=== PATIENT | male | born 1970 | race Caucasian/White ===

== ENCOUNTER 2019-01-26 07:12 | Day surgery (SDC) | payer BC ==
[~2019-01-26] VITALS: Ht 162.6 cm; Wt 88.2 kg
[2019-01-26] MEDS ORDERED: NS 1,000 ML IV ONE (07:30)
[2019-01-26] MEDS ORDERED: ONDANSETRON 4MG/2ML VIAL (J2405) IV ONE (07:30)
[2019-01-26] MEDS ORDERED: KETOROLAC 30 MG/ML VIAL (J1885) IV ONE (07:30)
[2019-01-26 07:58] LABS: BASO # 0.1 10^3/uL (0.0-0.2); BASO % 1.1 % (0.0-1.0); EOS # 0.8 10^3/uL (0.0-0.5); EOS % 7.2 % (0.0-3.0); HEMATOCRIT 48.7 % (42.0-52.0); HEMOGLOBIN 16.7 g/dl (13.5-17.5); LYMPH # 1.9 10^3/uL (1.5-5.0); LYMPH % 16.9 % (24.0-44.0); MEAN CORPUSCULAR HGB CONC 34.3 g/dl (32.0-36.5); MEAN CORPUSCULAR VOLUME 93.3 fl (80.0-96.0); MONO # 0.8 10^3/uL (0.0-0.8); MONO % 7.1 % (0.0-5.0); NEUTROPHILS # 7.7 10^3/uL (1.5-8.5); NEUTROPHILS % 67.3 % (36.0-66.0); PLATELET COUNT, AUTOMATED 223 10^3/uL (150-450); RED BLOOD COUNT 5.22 10^6/uL (4.30-6.10); WHITE BLOOD COUNT 11.4 10^3/uL (4.0-10.0)
[2019-01-26 08:21] LABS: BLOOD UREA NITROGEN 16 MG/DL (7-18); CALCIUM LEVEL 8.9 MG/DL (8.5-10.1); CARBON DIOXIDE LEVEL 24 MEQ/L (21-32); CHLORIDE LEVEL 110 MEQ/L (98-107); CREATININE FOR GFR 1.17 MG/DL (0.70-1.30); GLOMERULAR FILTRATION RATE > 60.0 (>60); GLUCOSE, FASTING 117 MG/DL (70-100); POTASSIUM SERUM 4.4 MEQ/L (3.5-5.1); SODIUM LEVEL 140 MEQ/L (136-145)
--- NOTE | 2019-01-26 08:39 | REP ---
Urinary tract sonography: History: Left flank pain. Evaluate for hydronephrosis or calculus. No comparison imaging. Findings: Scanning at the level of the urinary bladder shows no abnormality. Renal cortical echogenicity pattern is normal. Renal contours are smooth. No renal mass lesion is seen. The right kidney measures 11.2 x 4.9 x 5.3 cm. There is no evidence of right-sided hydronephrosis or calculus. Left renal dimensions are 11.5 x 6.3 x 6.3 cm. There is moderate hydronephrosis left kidney. Hydroureter is seen and the dilated mid ureter can be traced sonographically to the point where there is a 1 cm shadowing calculus within the left mid ureter. No other finding. Impression: Moderate left-sided hydronephrosis due to an obstructing 10 mm calculus at mid ureteral level. No abnormality on the right. Electronically Signed by King Johnson MD 01/26/2019 09:15 A
[2019-01-26] MEDS ORDERED: MORPHINE 4 MG/ML 1ML VIAL/SYRINGE (J2270) IV ONE ×2 (09:15→10:45)
[2019-01-26] MEDS ORDERED: TAMSULOSIN 0.4 MG CAP PO ONE (09:15)
[2019-01-26] MEDS ORDERED: PROMETHAZINE INJ 25 MG/ML VIAL (J2550) IV ONE (09:15)
--- NOTE | 2019-01-26 10:18 | REP ---
CT abdomen and pelvis without oral or IV contrast: History: 10 mm ureteral calculus noted on ultrasound producing hydronephrosis of the left kidney. CT findings: Digital preliminary public health administrator radiograph is unremarkable. The lung bases are essentially clear. The liver and the spleen are normal in size homogeneous in texture. No adrenal lesion is seen. Pancreas and gallbladder are unremarkable. Small and large intestinal bowel loops are normal in appearance. There are water to dystrophic calcifications in the prostate gland. Urinary bladder and seminal vesicles are normal in appearance. A normal appendix is noted in the right lower quadrant. There are numerous intrarenal calculi in the kidneys bilaterally. The largest intrarenal calculus in the right kidney is in its lower pole measuring 6 mm. The largest intrarenal calculus in the left kidney is also a lower pole calculus measuring 4 mm. There is moderate left-sided hydronephrosis confirmed by CT. This is due to a mid ureteral calculus who has greatest craniocaudal dimension is [address] scanning. There is periureteral edema along the mid ureter. Ureter is not dilated distal to this. No bladder calculus is seen. No bony destructive lesion is observed. The scan is otherwise unremarkable. Impression: 1. There is an obstructive 15 mm left mid ureteral calculus producing moderate left-sided hydronephrosis. Periureteral edema is seen. 2. There are numerous intrarenal calculi bilaterally. No right-sided hydronephrosis. Electronically Signed by King Johnson MD 01/26/2019 01:45 P
[2019-01-26] MEDS ORDERED: cefTRIAXone SOD 1 GM in D5W MINI-BAG PLUS 50 ML IV ONE (10:30)
[2019-01-26 15:15] VITALS: BP 132/87
[2019-01-26] MEDS ORDERED: ISOVUE-300 61% 50ML VIAL (Q9967) As Ordered ONE (17:51)
[2019-01-26] MEDS ORDERED: HEPARIN SOD (PORCINE) 5000 UNITS/ML VIAL As Ordered ONE (17:52)
[2019-01-26] MEDS ORDERED: BUPIVACAINE/EPIN 0.5% 30 ML VIAL As Ordered ONE (17:52)
[2019-01-26] MEDS ORDERED: CONRAY-60 60% 50ML VIAL (Q9961) As Ordered ONE (18:40)
[2019-01-26] MEDS ORDERED: LIDOCAINE 2% 5ML JELLY UROJET As Ordered ONE (18:40)
[2019-01-26] MEDS ORDERED: PROPOFOL 200 MG/20 ML VIAL As Ordered ONE ×2 (18:48→19:27)
[2019-01-26] MEDS ORDERED: LIDOCAINE 2% INJ 100 MG/5 ML SDV (FOR ANES.) As Ordered ONE (18:48)
[2019-01-26] MEDS ORDERED: MIDAZOLAM INJ 2 MG/2 ML VIAL (J2250) As Ordered ONE (18:50)
[2019-01-26] MEDS ORDERED: fentaNYL 100 MCG/2 ML INJECTION (J3010) As Ordered ONE (18:50)
[2019-01-26] MEDS ORDERED: ONDANSETRON 4MG/2ML VIAL (J2405) As Ordered ONE (18:51)
--- NOTE | 2019-01-26 18:51 | SMCUROLCON ---
Urology Consultation General Date of Consultation 01/26/19 Reason For Consultation This patient is seen for Kidney Stone. History of Present Illness This is a 48 y/o M w/ a PMH significant for NADIYA and kidney stones, presenting to the hospital w/ increasing worse left flank pain x 1 week. He also notes nausea but no vomiting. A CT A/P was obtained in the ER and was notable for moderate left hydroureteronephrosis due to an obstructing 15mm mid left ureteral stone. It was also notable for additional nonobstructing stones in each kidney. The patient notes that he has passed several stones previously but has never had surgery for kidney stones. Past Medical History Medical History kidney stones Surgical Hstory parathyroidectomy? Medications Current Medications Current Medications Medications (Trade) Dose Ordered Sig/Brianna Route PRN Reason Start Time Stop Time Status Last Admin Dose Admin Home Med (Med Rec Complete!) ASDIRECTED XX 01/26/19 10:45 01/26/19 10:50 DC Allergies Allergies: Coded Allergies: No Known Allergies (Unverified , 01/26/19) Review of Systems General: Reports: Normal Appetite; Denies: Fatigue, Malaise Constitutional: Denies: Fever, Chills, Sweats, Weakness, Malaise Cardiovascular: Reports Chest Pain (occasional) Gastrointestinal: Reports: Nausea; Denies: Vomiting, Other Symptoms Genitourinary: Denies: Dysuria, Frequency, Incontinence, Hematuria Musculoskeletal: Reports: Back Pain (left flank pain) Psych: Reports: Mood Normal Physical Examination General Exam: Alert, Cooperative, No Acute Distress Chest Exam: Clear to auscultation Heart Exam: Rate Normal, Regular Rhythm Abdomen Exam: Soft Skin Exam: Nl turgor and temperature Neuro Exam: Normal Speech Psych Exam: Mental status NL, Mood NL Vital Signs/I&O Vital Signs Date Time Temp Pulse Resp B/P (MAP) Pulse Ox O2 Delivery O2 Flow Rate FiO2 01/26/19 15:15 97.7 43 18 132/87 (102) 98 Room Air Laboratory Data 24H Labs Laboratory Tests 2 01/26/19 07:32: Immature Granulocyte % (Auto) 0.4, Neutrophils (%) (Auto) 67.3H, Lymphocytes (%) (Auto) 16.9L, Monocytes (%) (Auto) 7.1H, Eosinophils (%) (Auto) 7.2H, Basophils (%) (Auto) 1.1H, Neutrophils # (Auto) 7.7, Lymphocytes # (Auto) 1.9, Monocytes # (Auto) 0.8, Eosinophils # (Auto) 0.8H, Basophils # (Auto) 0.1, Nucleated Red Blood Cells % (auto) 0.0, Urine Color YELLOW, Urine Appearance HAZY, Urine pH 5.0, Urine Specific Philipp 1.023, Urine Protein 2+H, Urine Glucose (UA) NEGATIVE, Urine Ketones TRACEH, Urine Blood 3+H, Urine Nitrite NEGATIVE, Urine Bilirubin NEGATIVE, Urine Urobilinogen 0.2, Urine Leukocyte Esterase NEGATIVE, Urine WBC (Auto) 6H, Urine RBC (Auto) 148H, Urine Hyaline Casts (Auto) 0, Urine Bacteria (Auto) 1+H, Urine Squamous Epithelial Cells 0, Urine Mucus (Auto) SMALL, Urine Sperm (Auto) , Anion Gap 6L, Glomerular Filtration Rate > 60.0, Calcium Level 8.9 01/26/19 07:42: POC Lactate (Misc Panel) 0.74 CBC/BMP Laboratory Tests 01/26/19 07:32 Assessment This is a 48 y/o M w/ an obstructing 15mm mid left ureteral stone. I recommended that we take him to the OR today for cystoscopy, left ureteral stent placement. After a discussion of the risks and benefits of surgery, informed consent was signed. Plan - to OR now - NPO - rocephin 1g given at 11am - patient may be discharged home postop w/ outpt f/u to arrange b/l ureteroscopy w/ laser lithotripsy at a later date MARYELLEN CANSECO MD Jan 26, 2019 18:51
[2019-01-26] MEDS ORDERED: KETOROLAC 60 MG/2 ML VIAL (J1885) As Ordered ONE (19:30)
--- NOTE | 2019-01-26 19:50 | RO ---
DATE OF PROCEDURE: 01/26/2019 PREPROCEDURE DIAGNOSIS: Obstructing left ureteral stone. POSTPROCEDURE DIAGNOSIS: Obstructing left ureteral stone. PROCEDURE: Cystoscopy, left retrograde pyelogram and intraoperative interpretation of images, left ureteral stent placement. SURGEON: Natan Alanis MD EDITORIAL WRITER: None. ANESTHESIA: Monitored anesthesia care (MAC). OPERATIVE INDICATIONS: This is a 48-year-old male who was found to have an obstructing 15 mm mid left ureteral stone, as well as multiple nonobstructing bilateral kidney stones. He was brought to the operating room today for stent placement to help with intractable pain. DESCRIPTION OF PROCEDURE: The patient was brought to the operating room and MAC anesthesia was administered. Prophylactic antibiotics had already been administered. He was then placed in the dorsal lithotomy position and prepped and draped in the usual sterile fashion. A rigid cystoscope was inserted into the urethral meatus and advanced into the bladder. Once inside the bladder, a guidewire was advanced up the left collecting system. I then advanced a 5-Italian open-ended ureteral catheter up the left collecting system and then removed the wire. A retrograde pyelogram was performed and notable for moderate to severe left hydroureteronephrosis. I then advanced the wire back up and then removed the ureteral catheter. Next, I advanced a 7-Italian x 22-32 cm JJ ureteral stent up the left collecting system. The wire was removed, and there were adequate curls of the stent in the left renal pelvis and in the bladder. The bladder was then emptied of all fluids and this marked the conclusion of the procedure. The patient was then taken out of the dorsal lithotomy position, awakened from anesthesia, transported to the recovery room in stable condition. Estimated blood loss: 5 mL. Complications: None. Specimens: None. PLAN: The patient can be discharged home if his pain is controlled. We will schedule him to followup in our clinic in a week or two to get him set up for most likely bilateral ureteroscopy with laser lithotripsy. Also, of note, the patient has been having intermittent chest pain for a few months now. He will likely also need medical and potentially cardiac clearance.
[2019-01-26] MEDS ORDERED: ONDANSETRON 4MG/2ML VIAL (J2405) IV PRN (20:00)
[2019-01-26] MEDS ORDERED: LR 1,000 ML IV SCH (20:00)
[2019-01-26] MEDS ORDERED: PERCOCET 5MG/325MG TAB PO PRN ×2 (20:00)
[2019-01-26] MEDS ORDERED: fentaNYL 100 MCG/2 ML INJECTION (J3010) IV PRN (20:00)
[2019-01-26 20:37] VITALS: BP 130/80
--- NOTE | 2019-01-27 05:44 | REP ---
Clinical: Left ureteral stent placement. Technique: Single intraoperative fluoroscopic image. Findings: The patient is status post left ureteral stent placement in satisfactory position. Mild residual hydronephrosis suggested. Total fluoroscopic time 31 seconds (2.30 mGy) Electronically Signed by Kulwinder Horner MD 01/27/2019 05:36 A
--- NOTE | 2019-01-27 06:48 | ECGEPIP ---
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
== END 2019-01-26 21:51 | disposition home or self-care (01) ==
LOC: M ED 07:12 → M SDC 07:13 → M MSPAV 15:14 → M SDC 21:51
PROVIDERS: ATTEND Urology
DX: N20.2 Calculus of kidney with calculus of ureter (principal); G47.30 Sleep apnea, unspecified; F17.218 Nicotine dependence, cigarettes, with other nicotine-induced disorders; Z79.899 Other long term (current) drug therapy
CPT/HCPCS: 52332; 74176; 74420; 76775; 80048; 81001; 83605; 85025; 93005; 96361; 96365; 96375; 99284; C1769; C2617; J0696; J1885; J2250; J2270; J2405; J3010; Q9961; Q9967

== ENCOUNTER → 2019-02-02 | Outpatient (REF) | payer BC ==
[2019-02-02 13:12] LABS: APPEARANCE, URINE HAZY (CLEAR); BACTERIA, URINE AUTO NEGATIVE (NEGATIVE); BILIRUBIN, URINE AUTO NEGATIVE (NEGATIVE); BLOOD, URINE BLOOD 3+ (NEGATIVE); COLOR, URINE YELLOW (YELLOW); GLUCOSE, URINE (UA) AUTO NEGATIVE (NEGATIVE); KETONE, URINE AUTO NEGATIVE (NEGATIVE); LEUKOCYTE ESTERASE, URINE AUTO TRACE (NEGATIVE); MUCUS, URINE SMALL (NEGATIVE); NITRITE, URINE AUTO NEGATIVE (NEGATIVE); PROTEIN, URINE AUTO 2+ mg/dL (NEGATIVE); RBC, URINE AUTO 172 /HPF (0-3); SPECIFIC GRAVITY URINE AUTO 1.017 (1.002-1.035); SQUAMOUS EPITHELIAL CELL UR AU 0 /HPF (0-6); UROBILINOGEN, URINE AUTO 0.2 mg/dL (0.0-2.0); WBC, URINE AUTO 9 /HPF (0-3)
== END ==
LOC: M SMT 12:59
PROVIDERS: ATTEND Nurse Practitioner Family
DX: N20.0 Calculus of kidney (principal)

== ENCOUNTER → 2019-02-20 | Outpatient (REF) | payer BC ==
[2019-02-20 15:27] LABS: CHOLESTEROL RISK RATIO 7.777 (<5); CK-MB VALUE MASS 1.7 NG/ML (<3.6); MB/CK RELATIVE INDEX 0.97 (< OR =4); TROPONIN I 0.04 NG/ML (< 0.10)
== END ==
LOC: M PLALAB 12:52
PROVIDERS: ATTEND Student in an Organized Health Care Education/Training Program
DX: R07.9 Chest pain, unspecified (principal)

== ENCOUNTER → 2019-02-20 | Outpatient (CLI) | payer BC ==
[2019-02-20 15:17] LABS: HEMATOCRIT 45.5 % (42.0-52.0); HEMOGLOBIN 15.1 g/dl (13.5-17.5); MEAN CORPUSCULAR HEMOGLOBIN 31.9 pg (27.0-33.0); MEAN CORPUSCULAR HGB CONC 33.2 g/dl (32.0-36.5); PLATELET COUNT, AUTOMATED 238 10^3/uL (150-450); RED BLOOD COUNT 4.74 10^6/uL (4.30-6.10); WHITE BLOOD COUNT 10.4 10^3/uL (4.0-10.0)
[2019-02-20 15:27] LABS: APPEARANCE, URINE CLOUDY (CLEAR); BACTERIA, URINE AUTO NEGATIVE (NEGATIVE); BILIRUBIN, URINE AUTO NEGATIVE (NEGATIVE); BLOOD, URINE BLOOD 3+ (NEGATIVE); COLOR, URINE YELLOW (YELLOW); GLUCOSE, URINE (UA) AUTO NEGATIVE (NEGATIVE); KETONE, URINE AUTO NEGATIVE (NEGATIVE); LEUKOCYTE ESTERASE, URINE AUTO NEGATIVE (NEGATIVE); MUCUS, URINE SMALL (NEGATIVE); NITRITE, URINE AUTO NEGATIVE (NEGATIVE); PROTEIN, URINE AUTO 2+ mg/dL (NEGATIVE); RBC, URINE AUTO TNTC /HPF (0-3); SPECIFIC GRAVITY URINE AUTO 1.018 (1.002-1.035); SQUAMOUS EPITHELIAL CELL UR AU 0 /HPF (0-6); UROBILINOGEN, URINE AUTO 0.2 mg/dL (0.0-2.0); WBC, URINE AUTO 53 /HPF (0-3)
[2019-02-20 15:32] LABS: BLOOD UREA NITROGEN 13 MG/DL (7-18); CALCIUM LEVEL 9.1 MG/DL (8.5-10.1); CARBON DIOXIDE LEVEL 27 MEQ/L (21-32); CHLORIDE LEVEL 105 MEQ/L (98-107); CREATININE FOR GFR 1.11 MG/DL (0.70-1.30); GLOMERULAR FILTRATION RATE > 60.0 (>60); GLUCOSE, FASTING 91 MG/DL (70-100); POTASSIUM SERUM 4.4 MEQ/L (3.5-5.1); SODIUM LEVEL 140 MEQ/L (136-145)
[2019-02-20 15:39] LABS: PROTHROMBIN TIME 12.9 SECONDS (11.8-14.0)
[2019-02-20 15:40] LABS: PARTIAL THROMBOPLASTIN TIME 32.4 SECONDS (25.0-38.4)
== END ==
LOC: M PLALAB 09:49
PROVIDERS: ATTEND Nurse Practitioner Family
DX: Z01.818 Encounter for other preprocedural examination (principal); N20.0 Calculus of kidney

== ENCOUNTER 2019-03-04 05:49 | Day surgery (SDC) | payer BC ==
[~2019-03-04] VITALS: Ht 162.6 cm; Wt 86.6 kg
[~2019-03-04 05:49] MED LIST: OXYC1TAB23 PO
[2019-03-04] MEDS ORDERED: ceFAZolin SOD 2 GM in IV 1 EA IV ONE (06:00)
[2019-03-04] MEDS ORDERED: LIDOCAINE 1% MDV 20ML VIAL SQ PRN (06:00)
[2019-03-04] MEDS ORDERED: LR 1,000 ML IV SCH ×2 (06:00→09:45)
[2019-03-04] MEDS ORDERED: CONRAY-60 60% 50ML VIAL (Q9961) As Ordered ONE (07:11)
[2019-03-04] MEDS ORDERED: ONDANSETRON 4MG/2ML VIAL (J2405) As Ordered ONE (07:46)
[2019-03-04] MEDS ORDERED: PROPOFOL 200 MG/20 ML VIAL As Ordered ONE (07:46)
[2019-03-04] MEDS ORDERED: MIDAZOLAM INJ 2 MG/2 ML VIAL (J2250) As Ordered ONE (07:46)
[2019-03-04] MEDS ORDERED: METOCLOPRAMIDE INJ 10MG/2ML VIAL (J2765) As Ordered ONE (07:46)
[2019-03-04] MEDS ORDERED: ROCURONIUM BROMIDE 50 MG/5 ML VIAL As Ordered ONE (07:46)
[2019-03-04] MEDS ORDERED: LIDOCAINE 2% INJ 100 MG/5 ML SDV (FOR ANES.) As Ordered ONE (07:46)
[2019-03-04] MEDS ORDERED: fentaNYL 100 MCG/2 ML INJECTION (J3010) As Ordered ONE ×2 (07:46→07:50)
[2019-03-04] MEDS ORDERED: SUGAMMADEX SODIUM 500 MG/5 ML VIAL (BRIDION) As Ordered ONE (07:46)
[2019-03-04] MEDS ORDERED: dexameTHASONE 4 MG/ML 1ML VIAL (J1100) As Ordered ONE (07:46)
[2019-03-04] MEDS ORDERED: DESFLURANE 240 ML INHALANT As Ordered ONE (07:57)
[2019-03-04] MEDS ORDERED: SEVOFLURANE INHAL SOLN 250 ML BTL As Ordered ONE (07:58)
[2019-03-04] MEDS ORDERED: ACETAMINOPHEN 1000MG 100ML IV BTL (OFIRMEV) (J0131 PER 10MG) As Ordered ONE (08:10)
[2019-03-04] MEDS ORDERED: PERCOCET 5MG/325MG TAB PO PRN (09:45)
[2019-03-04] MEDS ORDERED: oxyBUTYnin 5 MG TAB PO PRN (09:45)
[2019-03-04] MEDS ORDERED: ONDANSETRON 4MG/2ML VIAL (J2405) IV PRN (09:45)
[2019-03-04] MEDS ORDERED: fentaNYL 100 MCG/2 ML INJECTION (J3010) IV PRN (09:45)
[2019-03-04] MEDS: oxyCODONE 5MG TAB PO PRN ×2 (10:10→10:54)
--- NOTE | 2019-03-04 10:45 | REP ---
RETROGRADE PYELOGRAM: THREE VIEWS. HISTORY: Nephrolithiasis. 16 seconds of fluoroscopy time is reported. FINDINGS: A sequence of three, last image hold, fluoroscopically obtained spot radiographs of the abdomen document bilateral ureteral cannulation and stent placement. The initial image demonstrates a nasogastric tube in the left upper quadrant which was apparently subsequently removed. Electronically Signed by King Johnson MD 03/04/2019 05:49 P
[2019-03-04] MEDS ORDERED: oxyCODONE 5MG TAB As Ordered ONE (10:50)
[2019-03-04 10:55] VITALS: BP 139/60
--- NOTE | 2019-03-05 19:10 | RO ---
DATE OF PROCEDURE: 03/04/2019 PREPROCEDURE DIAGNOSIS: Bilateral kidney stones. POSTPROCEDURE DIAGNOSIS: Bilateral kidney stones. OPERATIVE PROCEDURE: Cystoscopy, bilateral ureteroscopy with laser lithotripsy and basket extraction of stones, bilateral retrograde pyelogram with intraoperative interpretation of images, bilateral ureteral stent placement. SURGEON: Natan Alanis MD DIRECTOR CORPORATE SECURITY: None. ANESTHESIA: General. OPERATIVE INDICATIONS: This is a 49-year-old male who had a left ureteral stent placed three weeks ago for an obstructing 8 to 9 mm proximal left ureteral stone. Also of note, on CT scan he had several smaller stones in both kidneys. He was brought to the operating room today for treatment. DESCRIPTION OF PROCEDURE: The patient was brought to the operating room and general anesthesia was induced. Prophylactic antibiotics were infused. He was then placed in the dorsal lithotomy position, prepped and draped in the usual sterile fashion. A rigid cystoscope was inserted into the urethral meatus and advanced to the bladder. The previously placed stent was then grasped and withdrawn until the distal end was seen protruding from the urethral meatus. I then advanced a wire up the stent into the left collecting system. The stent was then removed. I then advanced the ureteral access sheath up into the left collecting system. I went up the access sheath with a flexible ureteroscope, and within the proximal ureter a 9 mm stone was seen. The stone was fragmented into smaller pieces using a 272 micron laser fiber. All of the fragments were then removed. I then examined the left kidney. Of note, he had a few tiny stones imbedded in renal papilla. There were a few free floating stones. These stones were removed using a basket. Any remaining stones were less than 1 to 2 mm in size. A retrograde pyelogram was performed and was notable for moderate left hydronephrosis with no extravasation. I then withdrew the ureteroscope along with access sheath. I then utilized the previously placed wire to advance a #6-Burkinan x 22- 32 cm JJ ureteral stent up to the left collecting system. I then advanced a wire up the right collecting system. A ureteral access sheath was advanced up the right collecting system. I went up the access sheath with a flexible ureteroscope and the right kidney was thoroughly examined. There were a few stones in the right kidney, the largest of which measured about 5 mm in size. The largest stones were then fragmented using the laser and then all of the fragments were removed using a basket. Once done the only fragments remaining were less than 1 to 2 mm in size. A retrograde pyelogram was performed notable for mild right hydronephrosis with no extravasation. I then withdrew the ureteroscope along with the access sheath. I then advanced a #6-Burkinan x 22-32 cm JJ ureteral stent up to the right collecting system. The wire was removed and there were adequate coils of the stent in the right renal pelvis and in the bladder. The bladder was then emptied of all fluids and this marked the conclusion of the procedure. The patient was then taken out of the dorsal lithotomy position, awakened from anesthesia and transported to the recovery room in stable condition. ESTIMATED BLOOD LOSS: 10 mL. COMPLICATIONS: None. SPECIMENS: Kidney stones. PLAN: The patient will followup in the clinic in a few weeks for stent removal. MAURICIO
== END 2019-03-04 12:00 | disposition home or self-care (01) ==
LOC: M SDC 05:49
PROVIDERS: ATTEND Urology
DX: N20.0 Calculus of kidney (principal); N32.89 Other specified disorders of bladder; R00.1 Bradycardia, unspecified; F17.210 Nicotine dependence, cigarettes, uncomplicated; R07.9 Chest pain, unspecified; G47.30 Sleep apnea, unspecified; E66.09 Other obesity due to excess calories; Z68.33 Body mass index [BMI] 33.0-33.9, adult
CPT/HCPCS: 52356; 74420; 82360; 88300; C1769; C1894; C2617; J0131; J0690; J1100; J2250; J2405; J2765; J3010; Q9961